=== PATIENT | female | born 1960 | race African-American/Black ===

== ENCOUNTER → 2017-03-16 | Outpatient (CLI) | payer OTHER ==
[~2017-03-16] MED LIST: CLON0.1T PO; FELO2.5T PO; HYDR25TA6 PO; LOSA1TAB18 PO; LOSA50TA6 PO; POTA10TA11 PO; SIMV80TA3 PO
== END | disposition home or self-care (01) ==
LOC: CFH 06:45
PROVIDERS: ATTEND Family Medicine
DX: I51.7 Cardiomegaly (principal); I10 Essential (primary) hypertension
CPT/HCPCS: 93306

== ENCOUNTER → 2017-03-23 | Outpatient (CLI) | payer OTHER | END | disposition home or self-care (01) | LOC: CFH 14:08 | PROVIDERS: ATTEND Family Medicine | DX: Z12.31 Encounter for screening mammogram for malignant neoplasm of breast (principal); E04.2 Nontoxic multinodular goiter; M25.512 Pain in left shoulder; R01.1 Cardiac murmur, unspecified | CPT/HCPCS: 73020; 76536; G0202 ==